=== PATIENT | female | born 1960 ===

== ENCOUNTER 2022-05-16 07:04 | Day surgery (SDC) | payer BC, OTHER ==
[~2022-05-16 07:04] MED LIST: Lactated Ringers 1,000 ML IV ONE
[2022-05-16] MEDS ORDERED: Midazolam 1 MG/ML 2 ML SDV ONE (07:10)
[2022-05-16] MEDS ORDERED: Propofol 200 MG/20 ML SDV ONE (07:11)
[2022-05-16] MEDS ORDERED: fentaNYL 50 MCG/ML SDV ONE (07:11)
[2022-05-16] MEDS ORDERED: Cyanocobalamin (Vitamin B12) 1,000 MCG/ML SDV IM ONE (08:00)
[2022-05-16] MEDS ORDERED: MVI, Adult with Vitamin K 10 ML, Thiamine 200 MG, Zinc/Copper/Manganese/Selenium 1 ML i... IV ONE ×4 (08:30)
[2022-05-16] MEDS ORDERED: Glycopyrrolate 0.2 MG/ML 2 ML SDV IVPUSH ONE (08:30)
[2022-05-16] MEDS ORDERED: Pantoprazole 40 MG Vial IVPUSH ONE (08:32)
[2022-05-16] MEDS ORDERED: Hyoscyamine 0.125 MG Tab.SL SL PRN (09:50)
[2022-05-16] MEDS ORDERED: Ondansetron 4 MG/2 ML SDV IVPUSH PRN (13:22)
[2022-05-16] MEDS ORDERED: Metoclopramide 10 MG/2 ML SDV IV PRN (13:23)
[2022-05-16 14:10] VITALS: BP 117/68; PULSE 70
== END 2022-05-16 14:56 | disposition home or self-care (01) ==
LOC: JP.SDS 07:04
PROVIDERS: ATTEND Surgery
DX: K21.00 Gastro-esophageal reflux disease with esophagitis, without bleeding (principal); K22.89 Other specified disease of esophagus; K29.70 Gastritis, unspecified, without bleeding; I10 Essential (primary) hypertension; F41.9 Anxiety disorder, unspecified; E78.5 Hyperlipidemia, unspecified; Z88.6 Allergy status to analgesic agent; Z88.5 Allergy status to narcotic agent; Z79.899 Other long term (current) drug therapy
CPT/HCPCS: 43239; 87081; 88305; 88313; 88341; 88342; A9270; C9113; J2250; J2405; J2704; J2765; J3010; J3411; J3420; J3490; J7120